=== PATIENT | male | born 1955 | race Caucasian/White ===

== ENCOUNTER 2017-06-30 05:30 | Inpatient (IN) | payer BC ==
[2017-06-24 13:54] LABS: BILIRUBIN,URINE NEGATIVE (NEGATIVE); CLARITY/URINE CLEAR (CLEAR); COLOR,URINE YELLOW (YELLOW); GLUCOSE,URINE TRACE (NEGATIVE); KETONES,URINE TRACE (NEGATIVE); LEUKOCYTE ESTERASE ,URINE TRACE (NEGATIVE); NITRITE, URINE POSITIVE (NEGATIVE); PROTEIN URINE 1+ (NEGATIVE); UROBILINOGEN,URINE 0.2 (0.2-1.0)
[2017-06-24 13:55] LABS: BLOOD, URINE TRACE (NEGATIVE)
[2017-06-24 14:00] LABS: BASOPHILS % (AUTO) 0.6 % (0.0-2.0); EOSINOPHILS # (AUTO) 0.1 K/uL (0.0-0.4); EOSINOPHILS % (AUTO) 1.4 % (0.0-4.0); HEMATOCRIT 42.5 % (36-54); LYMPHOCYTES # (AUTO) 1.9 K/uL (1.0-5.5); LYMPHOCYTES % (AUTO) 25.2 % (20.5-51.5); MEAN CORPUSCULAR HEMOGLOBIN 28 pg (27-31); MEAN CORPUSCULAR HGB CONC 33 % (32-36); MEAN CORPUSCULAR VOLUME 85 fL (79.0-98.0); MONOCYTES # (AUTO) 0.9 K/uL (0.0-1.0); MONOCYTES % (AUTO) 12.4 % (1.7-9.3); NEUTROPHILS # (AUTO) 4.7 K/uL (1.8-7.7); NEUTROPHILS % (AUTO) 60.4 % (40.0-70.0); PLATELET COUNT (AUTO) 221 K/uL (130-430); RED BLOOD CELL COUNT(AUTO) 4.99 MIL/uL (4.2-6.2); RED CELL DISTRIBUTION WIDTH 13.2 % (9.0-15.0); WHITE BLOOD COUNT (AUTO) 7.6 K/uL (4.8-10.8)
[2017-06-24 14:05] LABS: CREATININE 0.99 mg/dL (0.55-1.30)
[2017-06-24 14:09] LABS: INR 1.4 (0.80-1.20); PROTHROMBIN TIME 14.5 SECS (9.5-12.5)
[2017-06-24 14:23] LABS: RBC,URINE 0-3 /HPF (0-3)
[2017-06-24 14:24] LABS: BACTERIA,URINE FEW /HPF (None Seen); MUCUS,URINE None Seen /LPF (None Seen)
[~2017-06-30] VITALS: Ht 180.3 cm; Wt 120.2 kg
[~2017-06-30 05:30] MED LIST: AMLO5TAB4 PO; CARV25TA55 PO; GLIP5TAB13 PO; LISI-219 PO; METF1000 PO; WARF5TAB2 PO
[2017-06-30] MEDS ORDERED: oxyCODONE HCL 10 MG TAB.ER.12H PO ONE ×2 (06:40→07:00)
[2017-06-30] MEDS ORDERED: ACETAMINOPHEN 500 MG TABLET ONE (06:40)
[2017-06-30] MEDS ORDERED: CEFAZOLIN 2 GM IVPB PREMIX 50 ML IV ONE ×2 (06:40→07:00)
[2017-06-30] MEDS ORDERED: TRANEXAMIC ACID 650 MG TABLET ONE (06:41)
[2017-06-30] MEDS ORDERED: GABAPENTIN 300 MG CAPSULE ONE (06:41)
[2017-06-30] MEDS ORDERED: CELECOXIB 200 MG CAPSULE ONE (06:41)
[2017-06-30] MEDS ORDERED: TRANEXAMIC ACID 650 MG TABLET PO ONE (07:00)
[2017-06-30] MEDS ORDERED: NACL 0.9% 1,000 ML IV ONE (07:00)
[2017-06-30] MEDS ORDERED: CELECOXIB 200 MG CAPSULE PO ONE (07:00)
[2017-06-30] MEDS ORDERED: GABAPENTIN 300 MG CAPSULE PO ONE (07:00)
[2017-06-30] MEDS ORDERED: ACETAMINOPHEN 500 MG TABLET PO ONE (07:00)
[2017-06-30] MEDS ORDERED: POLYMYXIN 500,000/BACIT.10,000 UNITS in NS IRR 1 L IR ONE (07:04)
[2017-06-30] MEDS ORDERED: ROPIVACAINE HCL/PF 5 MG/ML 0.5% 30 ML VIAL INJ ONE (07:10)
[2017-06-30] MEDS ORDERED: DEXAMETHASONE SOD PHOSPHATE 4 MG/ML VIAL IVP ONE (07:10)
[2017-06-30] MEDS ORDERED: MIDAZOLAM HCL 5 MG/5 ML VIAL IVP ONE (07:10)
[2017-06-30] MEDS ORDERED: SEVOFLURANE 15 MIN GAS INH ONE (07:10)
[2017-06-30] MEDS ORDERED: PROPOFOL 200MG/ 20ML VIAL (DIPRIVAN) IV ONE (07:10)
[2017-06-30] MEDS ORDERED: ONDANSETRON HCL 4 MG/2 ML VIAL IVP ONE ×2 (07:10→09:00)
[2017-06-30] MEDS ORDERED: LIDOCAINE 1% 10 MG/ML, 20 ML MDV INJ ONE (07:10)
[2017-06-30] MEDS ORDERED: fentaNYL CITRATE/PF 100 MCG/2 ML AMP IVP ONE (07:10)
[2017-06-30] MEDS ORDERED: VANCOMYCIN HCL 1000 MG/VIAL IV ONE (07:10)
[2017-06-30] MEDS ORDERED: LR 1,000 ML IV.SOLN IV ONE (07:10)
[2017-06-30] MEDS ORDERED: MEPERIDINE HCL/PF 50 MG/ML AMP IVP ONE (07:10)
[2017-06-30] MEDS ORDERED: NS IRRIG SOLN 1000 ML IR ONE (07:10)
[2017-06-30] MEDS ORDERED: KETOROLAC TROMETHAMINE 30 MG VIAL IM ONE (09:00)
[2017-06-30] MEDS ORDERED: MIDAZOLAM HCL 5 MG/5 ML VIAL IVP PRN (09:00)
[2017-06-30] MEDS ORDERED: HYDROmorphone 1 MG INJ. 1 MG/ML AMPUL IVP PRN (09:00)
[2017-06-30] MEDS ORDERED: fentaNYL CITRATE/PF 100 MCG/2 ML AMP IVP PRN (09:00)
[2017-06-30] MEDS ORDERED: NALOXONE HCL 0.4 MG/ML AMP (NARCAN) IVP ONE (09:00)
[2017-06-30] MEDS ORDERED: MEPERIDINE HCL/PF 25 MG/ML DISP.SYRIN IVP PRN (09:00)
[2017-06-30] MEDS ORDERED: D5/0.45 NS 1,000 ML IV ONE (09:17)
[2017-06-30] MEDS ORDERED: HYDROcodone/ACETAMIN 7.5-325 MG TAB PO PRN (09:30)
[2017-06-30] MEDS ORDERED: BISACODYL 10 MG/SUPPOSITORY RC PRN (09:30)
[2017-06-30] MEDS ORDERED: ACETAMINOPHEN 325 MG TABLET PO PRN (09:30)
[2017-06-30] MEDS ORDERED: MORPHINE SULFATE 10 MG/ML VIAL IM PRN (09:30)
[2017-06-30 10:34] VITALS: BP_SYST 127
[2017-06-30 12:00] VITALS: BP_SYST 128
[2017-06-30] MEDS: CEFAZOLIN 1 GM IVPB PREMIX 50 ML IV SCH ×2 (14:36→22:14)
[2017-06-30 16:25] VITALS: BP_SYST 128
[2017-06-30] MEDS: RIVAROXABAN 10 MG TABLET PO SCH (18:34)
[2017-06-30 20:00] VITALS: BP_SYST 126
[2017-07-01] VITALS: BP_SYST 135
[2017-07-01 08:45] VITALS: BP_SYST 152
[2017-07-01] MEDS ORDERED: DEXTROSE 50% JECT 50 ML DISP.SYRIN IVP PRN (10:30)
[2017-07-01] MEDS ORDERED: INSULIN REGULAR, HUMAN 100 UNITS/ML, 10 ML VIAL (novoLIN R) SUBCUT PRN (10:30)
[2017-07-01 12:00] VITALS: BP_SYST 156
[2017-07-01] MEDS ORDERED: amLODIPine BESYLATE 5 MG TABLET PO ONE (15:00)
[2017-07-01] MEDS ORDERED: CARVEDILOL 25 MG TABLET (COREG) PO ONE (15:00)
[2017-07-01 16:51] VITALS: BP_SYST 160
[2017-07-01] MEDS: RIVAROXABAN 10 MG TABLET PO SCH (17:15)
[2017-07-01] MEDS: metFORMIN HCL 500 MG TABLET PO SCH (17:16)
[2017-07-01 20:00] VITALS: BP_SYST 130
[2017-07-01] MEDS: CARVEDILOL 25 MG TABLET (COREG) PO SCH (20:24)
[2017-07-02 00:54] VITALS: BP_SYST 118
[2017-07-02] MEDS: metFORMIN HCL 500 MG TABLET PO SCH ×2 (08:09→17:19)
[2017-07-02] MEDS: amLODIPine BESYLATE 5 MG TABLET PO SCH (08:10)
[2017-07-02] MEDS: CARVEDILOL 25 MG TABLET (COREG) PO SCH ×2 (08:11→21:37)
[2017-07-02 08:18] VITALS: BP_SYST 130
[2017-07-02] MEDS ORDERED: HCTZ PO SCH (09:00)
[2017-07-02] MEDS ORDERED: LISINOPRIL PO SCH (09:00)
[2017-07-02] MEDS: LISINOPRIL 20 MG TABLET PO SCH (10:28)
[2017-07-02] MEDS: HYDROCHLOROTHIAZIDE 12.5 MG CAPSULE (HCTZ) PO SCH (10:29)
[2017-07-02 12:00] VITALS: BP_SYST 132
[2017-07-02 16:20] VITALS: BP_SYST 132
[2017-07-02] MEDS: RIVAROXABAN 10 MG TABLET PO SCH (17:19)
[2017-07-02 19:00] VITALS: BP_SYST 118
[2017-07-02 20:00] VITALS: BP_SYST 118
[2017-07-03 00:28] VITALS: BP_SYST 116
[2017-07-03 08:09] VITALS: BP_SYST 127
[2017-07-03] MEDS: metFORMIN HCL 500 MG TABLET PO SCH (08:33)
[2017-07-03] MEDS: CARVEDILOL 25 MG TABLET (COREG) PO SCH (08:34)
[2017-07-03] MEDS: amLODIPine BESYLATE 5 MG TABLET PO SCH (08:35)
[2017-07-03] MEDS: LISINOPRIL 20 MG TABLET PO SCH (08:36)
[2017-07-03] MEDS: HYDROCHLOROTHIAZIDE 12.5 MG CAPSULE (HCTZ) PO SCH (08:37)
[2017-07-03 08:48] LABS: BASOPHILS % (AUTO) 0.2 % (0.0-2.0); EOSINOPHILS % (AUTO) 0.4 % (0.0-4.0); HEMOGLOBIN 11.3 g/dL (14.0-18.0); LYMPHOCYTES # (AUTO) 1.5 K/uL (1.0-5.5); LYMPHOCYTES % (AUTO) 13.5 % (20.5-51.5); MEAN CORPUSCULAR HEMOGLOBIN 28 pg (27-31); MEAN CORPUSCULAR HGB CONC 32 % (32-36); MEAN CORPUSCULAR VOLUME 86 fL (79.0-98.0); MONOCYTES # (AUTO) 0.9 K/uL (0.0-1.0); NEUTROPHILS # (AUTO) 8.4 K/uL (1.8-7.7); NEUTROPHILS % (AUTO) 77.9 % (40.0-70.0); PLATELET COUNT (AUTO) 181 K/uL (130-430); RED BLOOD CELL COUNT(AUTO) 4.06 MIL/uL (4.2-6.2); RED CELL DISTRIBUTION WIDTH 12.9 % (9.0-15.0); WHITE BLOOD COUNT (AUTO) 10.8 K/uL (4.8-10.8)
[2017-07-03 09:00] LABS: CALCIUM 8.6 mg/dL (8.4-11.0); CREATININE 0.88 mg/dL (0.55-1.30); POTASSIUM 3.6 mmol/L (3.5-5.1)
[2017-07-03 09:05] LABS: ALBUMIN 2.6 g/dL (3.4-4.8); TOTAL BILIRUBIN 1.1 mg/dL (0.0-1.0)
[2017-07-03 12:14] VITALS: BP_SYST 119
[2017-07-03 12:18] VITALS: BP_SYST 119
== END 2017-07-03 13:15 | disposition home health service (06) | DRG 470 ==
LOC: SMU 05:30
PROVIDERS: ADMIT Orthopaedic Surgery; ATTEND Orthopaedic Surgery
PROC: 0SRC0J9 Replacement of Right Knee Joint with Synthetic Substitute, Cemented, Open Approach (ICD-10-PCS; principal; 2017-06-30 07:30)
DX: M17.11 Unilateral primary osteoarthritis, right knee (principal); E11.9 Type 2 diabetes mellitus without complications; G89.29 Other chronic pain; Z96.659 Presence of unspecified artificial knee joint; I10 Essential (primary) hypertension; Z79.01 Long term (current) use of anticoagulants; Z88.6 Allergy status to analgesic agent
CPT/HCPCS: 36415; 71046-TC; 80048; 80053; 81000-TC; 82962; 85025; 85610-TC; 85730-TC; 87081; 87086; 87186-TC; 88305; 88311; 97039; 97110-GP; 97116-GP; 97530-GP; J0690; J1100; J1815; J2001; J2175; J2250; J2270; J2405; J2704; J3010; J3370; J7120

== ENCOUNTER 2018-01-12 06:33 | Inpatient (IN) | payer BC ==
[2018-01-07 15:04] LABS: EOSINOPHILS # (AUTO) 0.1 K/uL (0.0-0.4); HEMOGLOBIN 12.1 g/dL (14.0-18.0); MONOCYTES # (AUTO) 0.8 K/uL (0.0-1.0); MONOCYTES % (AUTO) 10.4 % (1.7-9.3)
[2018-01-07 15:10] LABS: BASOPHILS % (AUTO) 0.4 % (0.0-2.0); EOSINOPHILS % (AUTO) 1.8 % (0.0-4.0); HEMATOCRIT 38.6 % (36-54); LYMPHOCYTES # (AUTO) 1.4 K/uL (1.0-5.5); LYMPHOCYTES % (AUTO) 18.9 % (20.5-51.5); MEAN CORPUSCULAR HEMOGLOBIN 25 pg (27-31); MEAN CORPUSCULAR HGB CONC 31 % (32-36); MEAN CORPUSCULAR VOLUME 79 fL (79.0-98.0); NEUTROPHILS # (AUTO) 5.3 K/uL (1.8-7.7); NEUTROPHILS % (AUTO) 68.5 % (40.0-70.0); PLATELET COUNT (AUTO) 288 K/uL (130-430); RED BLOOD CELL COUNT(AUTO) 4.91 MIL/uL (4.2-6.2); RED CELL DISTRIBUTION WIDTH 16.2 % (9.0-15.0); WHITE BLOOD COUNT (AUTO) 7.6 K/uL (4.8-10.8)
[2018-01-07 15:26] LABS: BILIRUBIN,URINE NEGATIVE (NEGATIVE); BLOOD, URINE NEGATIVE (NEGATIVE); CLARITY/URINE CLEAR (CLEAR); COLOR,URINE YELLOW (YELLOW); GLUCOSE,URINE 1+ (NEGATIVE); KETONES,URINE NEGATIVE (NEGATIVE); LEUKOCYTE ESTERASE ,URINE NEGATIVE (NEGATIVE); NITRITE, URINE NEGATIVE (NEGATIVE); PROTEIN URINE TRACE (NEGATIVE)
[2018-01-07 15:31] LABS: CALCIUM 8.6 mg/dL (8.4-11.0); CREATININE 0.84 mg/dL (0.55-1.30); POTASSIUM 3.8 mmol/L (3.5-5.1)
[2018-01-07 15:37] LABS: ALBUMIN 3.2 g/dL (3.4-4.8); INR 2.1 (0.80-1.20); PROTHROMBIN TIME 21.5 SECS (9.5-12.5); TOTAL BILIRUBIN 0.6 mg/dL (0.0-1.0)
[2018-01-07 16:05] LABS: BACTERIA,URINE FEW /HPF (None Seen); RBC,URINE NONE SEEN /HPF (0-3); WBC,URINE 0-3 /HPF (0-3)
[2018-01-07 16:06] LABS: MUCUS,URINE 1+ /LPF (None Seen)
[~2018-01-12] VITALS: Ht 180.3 cm; Wt 117.9 kg
[~2018-01-12 06:33] MED LIST changes: +FERR-57 PO
[2018-01-12] MEDS ORDERED: CELECOXIB 200 MG CAPSULE ONE (06:47)
[2018-01-12] MEDS ORDERED: GABAPENTIN 300 MG CAPSULE ONE (06:47)
[2018-01-12] MEDS ORDERED: ACETAMINOPHEN 500 MG TABLET ONE (06:49)
[2018-01-12] MEDS ORDERED: oxyCODONE HCL 10 MG TAB.ER.12H PO ONE (06:50)
[2018-01-12] MEDS ORDERED: TRANEXAMIC ACID 650 MG TABLET ONE (06:50)
[2018-01-12] MEDS ORDERED: CEFAZOLIN 2 GM IVPB PREMIX 50 ML IV ONE (07:15)
[2018-01-12] MEDS ORDERED: POLYMYXIN 500,000/BACIT.10,000 UNITS in NS IRR 1 L IR ONE (07:19)
[2018-01-12] MEDS ORDERED: TRANEXAMIC ACID 1,000 MG/10 ML VIAL IV ONE (08:15)
[2018-01-12] MEDS ORDERED: VANCOMYCIN HCL 1000 MG/VIAL IV ONE (08:15)
[2018-01-12] MEDS ORDERED: SEVOFLURANE 15 MIN GAS INH ONE (08:15)
[2018-01-12] MEDS ORDERED: MIDAZOLAM HCL 5 MG/5 ML VIAL IVP ONE (08:15)
[2018-01-12] MEDS ORDERED: fentaNYL CITRATE/PF 100 MCG/2 ML AMP IVP ONE (08:15)
[2018-01-12] MEDS ORDERED: ROPIVACAINE 0.2% (NAROPIN) PF SOLUTION 100 ML BOTTLE EP ONE (08:15)
[2018-01-12] MEDS ORDERED: PROPOFOL 200MG/ 20ML VIAL (DIPRIVAN) IV ONE (08:15)
[2018-01-12] MEDS ORDERED: LR 1,000 ML IV.SOLN IV ONE (08:15)
[2018-01-12] MEDS ORDERED: MORPHINE SULFATE 10MG/10ML PF AMP EP ONE (08:15)
[2018-01-12] MEDS ORDERED: BUPIVACAINE /PF 0.5% 30 ML VIAL INJ ONE (08:15)
[2018-01-12] MEDS ORDERED: ROPIVACAINE 40 MG/20 ML AMP EP ONE ×2 (08:15)
[2018-01-12 08:19] LABS: INR 1.1 (0.80-1.20); PROTHROMBIN TIME 11.2 SECS (9.5-12.5)
[2018-01-12] MEDS ORDERED: D5/0.45 NS 1,000 ML IV ONE (08:26)
[2018-01-12] MEDS ORDERED: BISACODYL 10 MG/SUPPOSITORY RC PRN (08:30)
[2018-01-12] MEDS ORDERED: HYDROcodone/ACETAMIN 7.5-325 MG TAB PO PRN (08:30)
[2018-01-12] MEDS ORDERED: RIVAROXABAN 10 MG TABLET PO SCH (08:30)
[2018-01-12] MEDS ORDERED: ACETAMINOPHEN 325 MG TABLET PO PRN (08:30)
[2018-01-12] MEDS ORDERED: ROPIVACAINE 0.2% 550 ML INJ SCH (09:12)
[2018-01-12] MEDS ORDERED: KETOROLAC TROMETHAMINE 30 MG VIAL IVP PRN (09:15)
[2018-01-12] MEDS ORDERED: NALBUPHINE HCL 10 MG/ML AMP IVP PRN (09:15)
[2018-01-12] MEDS ORDERED: DIPHENHYDRAMINE INJ 50 MG/ML VIAL IVP PRN (09:15)
[2018-01-12] MEDS ORDERED: fentaNYL CITRATE/PF 100 MCG/2 ML AMP IVP PRN ×2 (09:15)
[2018-01-12] MEDS ORDERED: OXYCODONE/ACETAMINOPHEN *10*mg/325 mg TABLET PO PRN (09:15)
[2018-01-12] MEDS ORDERED: ONDANSETRON HCL 4 MG/2 ML VIAL IVP PRN ×2 (09:15)
[2018-01-12 12:41] VITALS: BP_SYST 127
[2018-01-12 13:03] VITALS: BP_SYST 127
[2018-01-12] MEDS: CEFAZOLIN 1 GM IVPB PREMIX 50 ML IV SCH ×2 (14:38→17:44)
[2018-01-12] MEDS: RIVAROXABAN 10 MG TABLET PO SCH (14:44)
[2018-01-12 15:20] VITALS: BP_SYST 127
[2018-01-12] MEDS ORDERED: DEXTROSE 50% JECT 50 ML DISP.SYRIN IVP PRN (17:15)
[2018-01-12] MEDS ORDERED: WARFARIN SODIUM 5 MG TABLET PO SCH (18:00)
[2018-01-12] MEDS: metFORMIN HCL 500 MG TABLET PO SCH (18:05)
[2018-01-12] MEDS: INSULIN REGULAR, HUMAN 100 UNITS/ML, 10 ML VIAL (novoLIN R) SUBCUT PRN (18:09)
[2018-01-12 20:00] VITALS: BP_SYST 136
[2018-01-12] MEDS: CARVEDILOL 25 MG TABLET (COREG) PO SCH (21:44)
[2018-01-12 22:40] VITALS: BP_SYST 143
[2018-01-13 06:19] LABS: CALCIUM 7.8 mg/dL (8.4-11.0); CREATININE 0.65 mg/dL (0.55-1.30); POTASSIUM 3.5 mmol/L (3.5-5.1)
[2018-01-13 06:22] LABS: INR 1.2 (0.80-1.20); PROTHROMBIN TIME 12.5 SECS (9.5-12.5)
[2018-01-13 06:29] LABS: ALBUMIN 2.5 g/dL (3.4-4.8)
[2018-01-13 06:56] LABS: BASOPHILS % (AUTO) 0.1 % (0.0-2.0); EOSINOPHILS % (AUTO) 0.2 % (0.0-4.0); HEMATOCRIT 32.1 % (36-54); HEMOGLOBIN 10.5 g/dL (14.0-18.0); LYMPHOCYTES % (AUTO) 10.4 % (20.5-51.5); MEAN CORPUSCULAR HEMOGLOBIN 26 pg (27-31); MEAN CORPUSCULAR HGB CONC 33 % (32-36); MEAN CORPUSCULAR VOLUME 80 fL (79.0-98.0); MONOCYTES # (AUTO) 1.2 K/uL (0.0-1.0); MONOCYTES % (AUTO) 12.4 % (1.7-9.3); NEUTROPHILS # (AUTO) 7.6 K/uL (1.8-7.7); NEUTROPHILS % (AUTO) 76.9 % (40.0-70.0); PLATELET COUNT (AUTO) 229 K/uL (130-430); RED CELL DISTRIBUTION WIDTH 15.8 % (9.0-15.0); WHITE BLOOD COUNT (AUTO) 9.8 K/uL (4.8-10.8)
[2018-01-13 08:18] VITALS: BP_SYST 163
[2018-01-13] MEDS: metFORMIN HCL 500 MG TABLET PO SCH ×2 (08:30→17:59)
[2018-01-13] MEDS: RIVAROXABAN 10 MG TABLET PO SCH (08:30)
[2018-01-13] MEDS: amLODIPine BESYLATE 5 MG TABLET PO SCH (08:31)
[2018-01-13] MEDS: HYDROCHLOROTHIAZIDE 12.5 MG CAPSULE (HCTZ) PO SCH (08:31)
[2018-01-13] MEDS: LISINOPRIL 20 MG TABLET PO SCH (08:32)
[2018-01-13] MEDS: CARVEDILOL 25 MG TABLET (COREG) PO SCH ×2 (08:32→20:46)
[2018-01-13] MEDS ORDERED: LISINOPRIL PO SCH (09:00)
[2018-01-13] MEDS ORDERED: HCTZ PO SCH (09:00)
[2018-01-13] MEDS: INSULIN REGULAR, HUMAN 100 UNITS/ML, 10 ML VIAL (novoLIN R) SUBCUT PRN ×3 (12:09→17:29)
[2018-01-13 12:35] VITALS: BP_SYST 134
[2018-01-13 16:25] VITALS: BP_SYST 128
[2018-01-13] MEDS ORDERED: WARFARIN SODIUM 5 MG TABLET PO ONE (18:00)
[2018-01-13 19:55] VITALS: BP_SYST 162
[2018-01-14 00:29] VITALS: BP_SYST 151
[2018-01-14 06:57] LABS: INR 1.2 (0.80-1.20); PROTHROMBIN TIME 12.6 SECS (9.5-12.5)
[2018-01-14 08:05] VITALS: BP_SYST 155
[2018-01-14] MEDS: CARVEDILOL 25 MG TABLET (COREG) PO SCH ×2 (08:42→20:53)
[2018-01-14] MEDS: HYDROCHLOROTHIAZIDE 12.5 MG CAPSULE (HCTZ) PO SCH (08:43)
[2018-01-14] MEDS: LISINOPRIL 20 MG TABLET PO SCH (08:43)
[2018-01-14] MEDS: metFORMIN HCL 500 MG TABLET PO SCH ×2 (08:44→17:37)
[2018-01-14] MEDS: amLODIPine BESYLATE 5 MG TABLET PO SCH (08:45)
[2018-01-14 12:10] VITALS: BP_SYST 145
[2018-01-14 16:29] VITALS: BP_SYST 138
[2018-01-14] MEDS ORDERED: WARFARIN SODIUM 5 MG TABLET PO ONE (18:00)
[2018-01-14 19:52] VITALS: BP_SYST 149
[2018-01-15] VITALS: BP_SYST 131
[2018-01-15 07:34] LABS: INR 1.1 (0.80-1.20); PROTHROMBIN TIME 11.6 SECS (9.5-12.5)
[2018-01-15 08:02] VITALS: BP_SYST 135
[2018-01-15] MEDS: LISINOPRIL 20 MG TABLET PO SCH (08:15)
[2018-01-15] MEDS: CARVEDILOL 25 MG TABLET (COREG) PO SCH (08:17)
[2018-01-15] MEDS: amLODIPine BESYLATE 5 MG TABLET PO SCH (08:17)
[2018-01-15] MEDS: HYDROCHLOROTHIAZIDE 12.5 MG CAPSULE (HCTZ) PO SCH (08:18)
[2018-01-15] MEDS: metFORMIN HCL 500 MG TABLET PO SCH (08:18)
[2018-01-15] MEDS ORDERED: TRAM1TAB33 PO (08:51)
[2018-01-15 08:56] VITALS: BP_SYST 135
[2018-01-15 13:07] VITALS: BP_SYST 147
[2018-01-15] MEDS ORDERED: WARFARIN SODIUM 5 MG TABLET PO ONE (18:00)
== END 2018-01-15 15:32 | disposition home or self-care (01) | DRG 470 ==
LOC: SMU 06:33
PROVIDERS: ADMIT Orthopaedic Surgery; ATTEND Orthopaedic Surgery
PROC: 0SRD0J9 Replacement of Left Knee Joint with Synthetic Substitute, Cemented, Open Approach (ICD-10-PCS; principal; 2018-01-12 08:30)
DX: M17.12 Unilateral primary osteoarthritis, left knee (principal); I48.91 Unspecified atrial fibrillation; G89.29 Other chronic pain; E11.9 Type 2 diabetes mellitus without complications; Z79.01 Long term (current) use of anticoagulants; Z88.5 Allergy status to narcotic agent
CPT/HCPCS: 36415; 71046-TC; 80053; 81000-TC; 82962; 83036; 83051; 85025; 85610-TC; 85730-TC; 87081; 88305; 88311; 94010; 97039; 97116-GP; 97530-GP; C1713; C1776; J0690; J1815; J2250; J2274; J2704; J2795; J3010; J3370; J3490; J7120

== ENCOUNTER 2018-04-06 14:12 | Emergency (ER) | payer BC ==
[~2018-04-06] VITALS: Ht 182.9 cm; Wt 117.9 kg
[~2018-04-06 14:12] MED LIST changes: +TRAM1TAB33 PO
--- NOTE | 2018-04-06 14:15 | NUR ---
Placed in room 6. Placed on registered nurse cardiac telemetry, blood pressure machine and pulse oximeter. To gown for exam. Side rails up. Report given to Baudilio FAN.
[2018-04-06 14:17] VITALS: BP_SYST 113
--- NOTE | 2018-04-06 14:20 | NUR ---
PATIENT SITTING UP ON BED. AAOX4. RESPIRATIONS EVEN AND UNLABORED AT THIS TIME. NO SOB. SPEAKING FULL SENTENCES. PT DENIES OF ANY CHEST PAIN AT THIS TIME. PT WITH C/O CONSTANT, SHARP, NON-RADIATING MID CHEST PAIN x3 WEEKS; WORSENED THE PAST 2 DAYS. PT ALSO WITH C/O INCREASED SOB UPON EXERTION. NO NUMBNESS/TINGLING. NO NAUSEA, VOMITING, HEADACHE, OR DIZZINESS. PATIENT APPEARS COMFORTABLE AT THIS TIME. REST, RELAXATION, AND DEEP BREATHING ENCOURAGED. FAMILY AT BEDISDE FOR SUPPORT. MD AWARE OF PT CONDITION AND CHIEF COMPLAINT.
--- NOTE | 2018-04-06 14:25 | NUR ---
ER Dr. DE LA TORRE at bedside examining patient.
--- NOTE | 2018-04-06 15:10 | NUR ---
PATIENT SITTING ON BED AND RESTING COMFORTABLY. DENIES OF ANY PAIN. NO ACUTE DISTRESS. AWAITING LAB RESULTS.
[2018-04-06 15:13] LABS: CALCIUM 8.5 mg/dL (8.4-11.0); CREATININE 1.17 mg/dL (0.55-1.30); POTASSIUM 4.1 mmol/L (3.5-5.1)
[2018-04-06 15:14] LABS: INR 1.9 (0.80-1.20); PROTHROMBIN TIME 18.9 SECS (9.5-12.5)
[2018-04-06 15:19] LABS: ALBUMIN 2.6 g/dL (3.4-4.8); TOTAL BILIRUBIN 2.1 mg/dL (0.0-1.0)
[2018-04-06 15:27] LABS: BASOPHILS # (AUTO) 0.1 K/uL (0.0-0.2); BASOPHILS % (AUTO) 0.5 % (0.0-2.0); EOSINOPHILS % (AUTO) 0.1 % (0.0-4.0); HEMATOCRIT 33.5 % (36-54); HEMOGLOBIN 10.9 g/dL (14.0-18.0); LYMPHOCYTES % (AUTO) 8.4 % (20.5-51.5); MEAN CORPUSCULAR HEMOGLOBIN 26 pg (27-31); MEAN CORPUSCULAR HGB CONC 33 % (32-36); MEAN CORPUSCULAR VOLUME 79 fL (79.0-98.0); MONOCYTES # (AUTO) 1.2 K/uL (0.0-1.0); MONOCYTES % (AUTO) 9.9 % (1.7-9.3); NEUTROPHILS # (AUTO) 9.5 K/uL (1.8-7.7); NEUTROPHILS % (AUTO) 81.1 % (40.0-70.0); PLATELET COUNT (AUTO) 274 K/uL (130-430); RED BLOOD CELL COUNT(AUTO) 4.24 MIL/uL (4.2-6.2); WHITE BLOOD COUNT (AUTO) 11.8 K/uL (4.8-10.8)
--- NOTE | 2018-04-06 16:10 | NUR ---
Patient resting quietly. No acute distress noted.
[2018-04-06] MEDS ORDERED: LEVOFLOXACIN 500 MG TABLET PO ONE (16:30)
--- NOTE | 2018-04-06 16:38 | NUR ---
LEVOFLOXACIN ADMINISTERED. TOLERATED WELL.
[2018-04-06 17:10] VITALS: BP_SYST 116
--- NOTE | 2018-04-06 17:10 | NUR ---
Patient given written and verbal discharge instructions and verbalizes understanding. ER MD discussed with patient the results and treatment provided. Patient in stable condition. ID arm band removed. IV catheter removed intact and dressing applied, no active bleeding. Rx of LEVAQUIN AND MOTRIN given. Patient educated on pain management and to follow up with PMD. Pain Scale 0/10. Opportunity for questions provided and answered. Medication side effect fact sheet provided. PATIENT DENIES OF ANY CHEST PAIN OR SOB AT THIS TIME. SPEAKING FULL SENTENCES. PT IN GOOD CONDITION AND IN NO ACUTE DISTRESS. PT NOTED WITH A STEADY GAIT.
== END 2018-04-06 17:10 | disposition home or self-care (01) ==
LOC: SED 14:12
DX: J18.9 Pneumonia, unspecified organism (principal); E11.9 Type 2 diabetes mellitus without complications; I10 Essential (primary) hypertension; I48.91 Unspecified atrial fibrillation; Z86.73 Personal history of transient ischemic attack (TIA), and cerebral infarction without residual deficits; Z88.5 Allergy status to narcotic agent; Z88.6 Allergy status to analgesic agent; Z79.899 Other long term (current) drug therapy
CPT/HCPCS: 36415; 71045; 80053; 82550-TC; 83880; 84484; 85025; 85610-TC; 85730-TC; 93005; 99284

== ENCOUNTER 2018-07-27 17:04 | Emergency (ER) | payer BC ==
[~2018-07-27] VITALS: Ht 182.9 cm; Wt 113.4 kg
[~2018-07-27 17:04] MED LIST changes: +TRAM-350 PO; -TRAM1TAB33 PO
[2018-07-27 17:06] VITALS: BP_SYST 138
--- NOTE | 2018-07-27 17:06 | NUR ---
Patient triaged and placed in ER bed 5. VSS and patient appears in no acute distress at this time.
--- NOTE | 2018-07-27 17:10 | NUR ---
Patient comes to ER accompanited by mother in law in personal vehicle. Patient is AOx4, verbal, and ambulatory. Patient had complaint of SOB which patient verbalizes has resolved, but states that his family pressured him into coming to ER. Patient says he recently saw his primary MD who told him he has fluid build up in his lungs. No other complaint or injury at this time.
--- NOTE | 2018-07-27 17:40 | NUR ---
DR ALAS at bedside for ER evaluation
[2018-07-27 17:42] LABS: BASOPHILS % (AUTO) 0.6 % (0.0-2.0); EOSINOPHILS # (AUTO) 0.1 K/uL (0.0-0.4); HEMATOCRIT 45.7 % (36-54); HEMOGLOBIN 14.8 g/dL (14.0-18.0); LYMPHOCYTES # (AUTO) 1.9 K/uL (1.0-5.5); MEAN CORPUSCULAR HEMOGLOBIN 26 pg (27-31); MEAN CORPUSCULAR HGB CONC 32 % (32-36); MEAN CORPUSCULAR VOLUME 80 fL (79.0-98.0); MONOCYTES # (AUTO) 0.8 K/uL (0.0-1.0); MONOCYTES % (AUTO) 11.6 % (1.7-9.3); NEUTROPHILS # (AUTO) 4.1 K/uL (1.8-7.7); NEUTROPHILS % (AUTO) 58.8 % (40.0-70.0); PLATELET COUNT (AUTO) 238 K/uL (130-430); RED CELL DISTRIBUTION WIDTH 17.3 % (9.0-15.0)
[2018-07-27 17:45] LABS: CALCIUM 9.3 mg/dL (8.4-11.0); CREATININE 0.9 mg/dL (0.55-1.30); POTASSIUM 3.6 mmol/L (3.5-5.1)
[2018-07-27 17:50] LABS: INR 1.6 (0.80-1.20); PROTHROMBIN TIME 16.5 SECS (9.5-12.5)
[2018-07-27 17:51] LABS: ALBUMIN 3.4 g/dL (3.4-4.8); TOTAL BILIRUBIN 0.9 mg/dL (0.0-1.0)
[2018-07-27] MEDS ORDERED: IPRATROPIUM BROM 0.5 MG/2.5 ML VIAL.NEB (ATROVENT) IH ONE (18:00)
[2018-07-27] MEDS ORDERED: ALBUTEROL SULFATE 0.083% 2.5 MG/3 ML VIAL.NEB IH ONE (18:00)
[2018-07-27] MEDS ORDERED: methylPREDNISolone SOD SUCC/PF 62.5 MG/ML VIAL IVP ONE (18:00)
[2018-07-27] MEDS ORDERED: IPRATROPIUM/ALBUTEROL SULFATE 3 ML AMPUL.NEB (DUONEB) ONE (18:22)
[2018-07-27 19:33] VITALS: BP_SYST 142
--- NOTE | 2018-07-27 19:33 | NUR ---
Patient given written and verbal discharge instructions and verbalizes understanding. ER MD discussed with patient the results and treatment provided. Patient in stable condition. ID arm band removed. IV catheter removed intact and dressing applied, no active bleeding. Rx of Prednisone, Proventil, and Zithromax given. Patient educated on pain management and to follow up with PMD. Pain Scale 0/10. Opportunity for questions provided and answered. Medication side effect fact sheet provided.
--- NOTE | 2018-07-28 09:37 | NUR ---
Pharmacy called as the patient reported to them that he is allergic to clarithromycin and the patient was prescribed azithromycin. Dr. Pollard changed Rx to Augmentin 875mg PO Bid x 10 days.
== END 2018-07-27 19:33 | disposition home or self-care (01) ==
LOC: SED 17:04
DX: R06.02 Shortness of breath (principal); I11.0 Hypertensive heart disease with heart failure; I50.9 Heart failure, unspecified; E11.9 Type 2 diabetes mellitus without complications; Z86.73 Personal history of transient ischemic attack (TIA), and cerebral infarction without residual deficits; Z88.5 Allergy status to narcotic agent; Z88.6 Allergy status to analgesic agent; Z79.899 Other long term (current) drug therapy
CPT/HCPCS: 36415; 36600; 71046; 80053; 82803; 83605; 83880; 84484; 85025; 85610; 85730; 87040; 93005; 94640; 96374; 99284; J2930; J7613; J7620

== ENCOUNTER 2019-06-04 09:12 | Outpatient (CLI) | payer BC | END 2019-06-04 20:17 | disposition home or self-care (01) | LOC: SRD 09:12 | PROVIDERS: ATTEND Family Medicine | DX: I51.7 Cardiomegaly (principal); R04.2 Hemoptysis | CPT/HCPCS: 71046-TC ==

== ENCOUNTER 2019-11-26 09:32 | Outpatient (CLI) | payer BC | END 2019-11-27 19:02 | disposition home or self-care (01) | LOC: SCT 09:32 | PROVIDERS: ATTEND Family Medicine | DX: G31.9 Degenerative disease of nervous system, unspecified (principal); I63.9 Cerebral infarction, unspecified; I70.90 Unspecified atherosclerosis; I48.91 Unspecified atrial fibrillation | CPT/HCPCS: 70450-TC ==

== ENCOUNTER 2020-05-23 09:52 | Outpatient (CLI) | payer BC ==
[2020-05-23 11:08] LABS: BASOPHILS % (AUTO) 0.7 % (0.0-2.0); EOSINOPHILS # (AUTO) 0.1 K/uL (0.0-0.4); EOSINOPHILS % (AUTO) 1.2 % (0.0-4.0); HEMATOCRIT 46.2 % (36-54); HEMOGLOBIN 15.2 g/dL (14.0-18.0); LYMPHOCYTES # (AUTO) 1.5 K/uL (1.0-5.5); LYMPHOCYTES % (AUTO) 23.9 % (20.5-51.5); MEAN CORPUSCULAR HEMOGLOBIN 28 pg (27-31); MEAN CORPUSCULAR HGB CONC 33 % (32-36); MEAN CORPUSCULAR VOLUME 86 fL (79.0-98.0); MONOCYTES # (AUTO) 0.7 K/uL (0.0-1.0); MONOCYTES % (AUTO) 10.2 % (1.7-9.3); NEUTROPHILS # (AUTO) 4.1 K/uL (1.8-7.7); PLATELET COUNT (AUTO) 199 K/uL (130-430); RED CELL DISTRIBUTION WIDTH 14.8 % (9.0-15.0); WHITE BLOOD COUNT (AUTO) 6.4 K/uL (4.8-10.8)
[2020-05-23 11:19] LABS: BILIRUBIN,URINE NEGATIVE (NEGATIVE); BLOOD, URINE NEGATIVE (NEGATIVE); COLOR,URINE YELLOW (YELLOW); GLUCOSE,URINE NEGATIVE (NEGATIVE); KETONES,URINE NEGATIVE (NEGATIVE); LEUKOCYTE ESTERASE ,URINE NEGATIVE (NEGATIVE); NITRITE, URINE NEGATIVE (NEGATIVE); PROTEIN URINE 1+ (NEGATIVE)
[2020-05-23 11:32] LABS: CLARITY/URINE SLIGHTLY HAZY (CLEAR)
[2020-05-23 11:38] LABS: INR 2.3 (0.80-1.20); PROTHROMBIN TIME 22.7 SECS (9.5-12.5)
[2020-05-23 11:43] LABS: ALBUMIN 3.7 g/dL (3.4-4.8); CALCIUM 8.7 mg/dL (8.4-11.0); CREATININE 0.96 mg/dL (0.55-1.30); POTASSIUM 3.3 mmol/L (3.5-5.1); TOTAL BILIRUBIN 1.1 mg/dL (0.0-1.0)
[2020-05-23 11:44] LABS: BACTERIA,URINE FEW /HPF (None Seen); RBC,URINE NONE SEEN /HPF (0-3); WBC,URINE 0-3 /HPF (0-3)
== END 2020-05-23 20:33 | disposition home or self-care (01) ==
LOC: SLB 09:52
PROVIDERS: ATTEND Family Medicine
DX: I48.11 Longstanding persistent atrial fibrillation (principal)
CPT/HCPCS: 36415; 80053; 80061; 81000-TC; 82043; 82306; 82570; 82607; 82746; 83036; 84153; 85025; 85610-TC

== ENCOUNTER 2020-06-23 09:48 | Outpatient (CLI) | payer BC ==
[2020-06-23 10:39] LABS: PROTHROMBIN TIME 10.7 SECS (9.5-12.5)
[2020-06-23 10:42] LABS: CHOLESTEROL 167 mg/dL (<200); HDL CHOLESTEROL 54 mg/dL (>45); LDL CHOLESTEROL 114 mg/dL (<100); TRIGLYCERIDES 75 mg/dL (30-150)
== END 2020-06-23 19:26 | disposition home or self-care (01) ==
LOC: SLB 09:48
PROVIDERS: ATTEND Family Medicine
DX: E11.9 Type 2 diabetes mellitus without complications (principal); E78.00 Pure hypercholesterolemia, unspecified; I10 Essential (primary) hypertension; I48.11 Longstanding persistent atrial fibrillation
CPT/HCPCS: 36415; 80061; 85610-TC

== ENCOUNTER 2022-05-17 15:14 | Emergency (ER) | payer OTHER, MEDICARE ==
[~2022-05-17] VITALS: Ht 182.9 cm; Wt 122.5 kg
[2022-05-17 16:50] LABS: BASOPHILS % (AUTO) 0.8 % (0.0-2.0); EOSINOPHILS # (AUTO) 0.1 K/uL (0.0-0.4); EOSINOPHILS % (AUTO) 1.8 % (0.0-4.0); HEMATOCRIT 40.2 % (36-54); LYMPHOCYTES # (AUTO) 1.1 K/uL (1.0-5.5); LYMPHOCYTES % (AUTO) 20.2 % (20.5-51.5); MEAN CORPUSCULAR HEMOGLOBIN 29 pg (27-31); MEAN CORPUSCULAR HGB CONC 32 % (32-36); MEAN CORPUSCULAR VOLUME 89 fL (79.0-98.0); MONOCYTES # (AUTO) 0.8 K/uL (0.0-1.0); MONOCYTES % (AUTO) 14.8 % (1.7-9.3); NEUTROPHILS # (AUTO) 3.4 K/uL (1.8-7.7); NEUTROPHILS % (AUTO) 62.4 % (40.0-70.0); RED BLOOD CELL COUNT(AUTO) 4.53 MIL/uL (4.2-6.2); RED CELL DISTRIBUTION WIDTH 15.4 % (9.0-15.0); WHITE BLOOD COUNT (AUTO) 5.5 K/uL (4.8-10.8)
[2022-05-17 16:56] LABS: CALCIUM 8.4 mg/dL (8.4-11.0); CREATININE 1.29 mg/dL (0.55-1.30)
[2022-05-17 17:00] LABS: ALBUMIN 3.3 g/dL (3.4-4.8); PLATELET COUNT (AUTO) 114 K/uL (130-430); TOTAL BILIRUBIN 1.9 mg/dL (0.0-1.0)
[2022-05-17 18:59] LABS: BLOOD, URINE NEGATIVE (NEGATIVE); CLARITY/URINE CLEAR (CLEAR); GLUCOSE,URINE TRACE (NEGATIVE); KETONES,URINE TRACE (NEGATIVE); LEUKOCYTE ESTERASE ,URINE NEGATIVE (NEGATIVE); NITRITE, URINE NEGATIVE (NEGATIVE); PH,URINE 5.5 (5.0-8.0); PROTEIN URINE 2+ (NEGATIVE)
[2022-05-17 19:09] LABS: BILIRUBIN,URINE NEGATIVE (NEGATIVE)
[2022-05-17 19:10] LABS: BACTERIA,URINE None Seen /HPF (None Seen); COLOR,URINE ORANGE (YELLOW); RBC,URINE 0-3 /HPF (0-3); WBC,URINE 0-3 /HPF (0-3)
[2022-05-17 19:11] LABS: MUCUS,URINE 1+ /LPF (None Seen)
== END 2022-05-17 20:25 | disposition home or self-care (01) ==
LOC: SED 15:14
DX: N50.89 Other specified disorders of the male genital organs (principal); E11.9 Type 2 diabetes mellitus without complications; I11.0 Hypertensive heart disease with heart failure; I50.9 Heart failure, unspecified; Z88.1 Allergy status to other antibiotic agents; Z88.5 Allergy status to narcotic agent; Z88.6 Allergy status to analgesic agent; Z79.899 Other long term (current) drug therapy
CPT/HCPCS: 36415; 76870-TC; 80053; 81000; 83880; 85025; 99284